=== PATIENT | female | born 1995 | race Caucasian/White ===

== ENCOUNTER → 2018-07-04 16:54 | Emergency (ER) | payer OTHER ==
--- NOTE | 2018-07-04 18:16 | ED ---
Upper Extremity Pain - HPI Summary HPI Summary: 23-year-old female presents with right hand pain today. She hurt it snowboarding by falling on her hand. she denies any elbow pain. Pain is greatest over her metacarpals and carpels. No previous injury to the area. she is right-handed. 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 Has no medical conditions. - History of Current Complaint Chief Complaint: EDExtremityUpper Stated Complaint: ARM INJURY Time Seen by Provider: 07/04/18 17:36 - Allergies/Home Medications Allergies/Adverse Reactions: Allergies Allergy/AdvReac Type Severity Reaction Status Date / Time No Known Allergies Allergy Verified 07/04/18 17:06 Home Medications: Home Medications Norethindrone-E.estradiol-Iron [Junel Fe 06/14 1-20 mg-Mcg] 1 tab PO DAILY [History Confirmed 07/04/18] PMH/Surg Hx/FS Hx/Imm Hx Endocrine/Hematology History: Denies: Hx Anticoagulant Therapy Respiratory History: Denies: Hx Asthma Infectious Disease History: No Infectious Disease History: Denies: Traveled Outside the [place] in Last 30 Days - Family History Known Family History: Positive: Non-Contributory - Social History Alcohol Use: Occasionally Substance Use Type: Reports: None Smoking Status (MU): Never Smoked Tobacco Review of Systems Negative: Fever Negative: Chest Pain Negative: Shortness Of Breath Positive: Myalgia - right arm pain All Other Systems Reviewed And Are Negative: Yes Physical Exam Triage Information Reviewed: Yes Vital Signs On Initial Exam: Initial Vitals Temp Pulse Resp BP Pulse Ox 99.2 F 92 16 100/71 99 07/04/18 17:01 07/04/18 17:01 07/04/18 17:01 07/04/18 17:01 07/04/18 17:01 Vital Signs Reviewed: Yes Appearance: Positive: Well-Appearing Skin: Positive: Warm, Dry Head/Face: Positive: Normal Head/Face Inspection Eyes: Positive: Normal, EOMI, GORGE, Conjunctiva Clear ENT: Positive: Pharynx normal Respiratory/Lung Sounds: Positive: Clear to Auscultation, Breath Sounds Present Cardiovascular: Positive: Normal, RRR Musculoskeletal: Positive: Limited @ - fingers, Other - minimially tenderness snuff box right hand, good pulses, capillary refil<2 secs, edema noted over metacarpels, sensation grossly intact Neurological: Positive: Normal Psychiatric: Positive: Normal Diagnostics - Vital Signs Vital Signs Temp Pulse Resp BP Pulse Ox 07/04/18 17:01 99.2 F 92 16 100/71 99 - Laboratory Lab Statement: Any lab studies that have been ordered have been reviewed, and results considered in the medical decision making process. - Radiology wrist Radiology Interpretation Completed By: Radiologist Summary of Radiographic Findings: IMPRESSION: NO EVIDENCE FOR FRACTURE. IF THE PATIENT'S SYMPTOMS PERSIST RECOMMEND. FOLLOW-UP IMAGING. Course/Dx - Course Course Of Treatment: 23-year-old female presents with right hand pain today. She hurt it snowboarding by falling on her hand. she denies any elbow pain. Pain is greatest over her metacarpals and carpels. No previous injury to the area. she is right-handed. 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 Has no medical conditions. On exam tenderness over the metacarpals of the right hand. Minimal snuffbox tenderness. X-rays are normal. Neurovascular intact. Has edema over the 3rd and 4th metacarpal so told should follow up with ortho as can not rule out ligament injury with edema and limited ROM. told to ice and elevate. gave prefabrinated thumb spica splint. patient understand and agrees with plan. - Diagnoses Differential Diagnosis/HQI/PQRI: Positive: Fracture (Closed), Strain, Sprain Provider Diagnoses: Injury of right hand Discharge - Sign-Out/Discharge Documenting (check all that apply): Patient Departure Patient Received Moderate/Deep Sedation with Procedure: No - Discharge Plan Condition: Good Disposition: HOME Patient Education Materials: R.I.C.E. Treatment (ED) Referrals: [facility] - Dru BENITEZ [Primary Care Provider] - Alan Longo MD [Medical Doctor] - Additional Instructions: keep splint on the area Take Tylenol or ibuprofen every 6 hours as needed for pain Apply ice, rest, elevate call ortho to follow up Return to ED if develop any new or worsening symptoms - Billing Disposition and Condition Condition: GOOD Disposition: Home
[2018-07-04 18:41] VITALS: BP 99/52
== END | disposition home or self-care (01) ==
LOC: ED 16:54
DX: S69.91XA Unspecified injury of right wrist, hand and finger(s), initial encounter (principal); M79.641 Pain in right hand; W19.XXXA Unspecified fall, initial encounter; Y93.23 Activity, snow (alpine) (downhill) skiing, snowboarding, sledding, tobogganing and snow tubing; Y92.9 Unspecified place or not applicable
CPT/HCPCS: 99282